=== PATIENT | male | born 1930 | race Caucasian/White ===

== ENCOUNTER 2016-11-12 09:26 | Observation (INO) | payer MEDICARE, BC ==
[2016-11-12 10:14] LABS: Appearance,Urine Clear (Clear); Bilirubin,Urine Negative (Negative); Glucose,Urine (UA) Negative (Negative); Ketones,Urine Negative (Negative); Leukocyte Esterase,Urine Negative (Negative); Mucus,Urine Rare /hpf; Nitrite,Urine Negative (Negative); Particle Count 3113; Protein,Urine Negative (Negative); RBC,Urine 135 /hpf (0-5); Specific Gravity,Urine 1.007 (1.001-1.035); UA Billing (MACRO vs. MICRO) MICRO; Urobilinogen,Urine <2.0 mg/dL (<2.0); WBC,Urine 2 /hpf (0-5)
--- NOTE | 2016-11-12 11:10 | ED ---
Male Urogenital HPI - General Chief complaint: Urogenital Stated complaint: blood in urine Time Seen by Provider: 11/12/16 10:32 Source: patient Mode of arrival: ambulatory Limitations: no limitations - History of Present Illness Initial comments: Patient is an 86-year-old male with history of diabetes, A. fib on Eliquis to presenting with 1 week of dysuria, decreased output and hematuria. Patient is from [place] and PCP started patient on Cipro for concern of urinary tract infection. Patient completed course of Cipro without change in symptoms. Patient states currently he is just dribbling urine. Patient continues to feels urgency. He denies fever, chills, chest pain, shortness breath, nausea, vomiting, abd pain. - Related Data Home Medications Medication Instructions Recorded Confirmed Apixaban [Eliquis] 2.5 mg PO BID 11/12/16 11/12/16 Atorvastatin [Lipitor] 10 mg PO DAILY 11/12/16 11/12/16 Carvedilol [Coreg] 6.25 mg PO DAILY 11/12/16 11/12/16 Cholecalciferol [Vitamin D3] 1,000 unit PO DAILY 11/12/16 11/12/16 Finasteride [Proscar] 5 mg PO DAILY 11/12/16 11/12/16 Glimepiride [Amaryl] 2 mg PO BID 11/12/16 11/12/16 Linagliptin [Tradjenta] 5 mg PO DAILY 11/12/16 11/12/16 Losartan Potassium 50 mg PO BID 11/12/16 11/12/16 Propafenone HCl [Propafenone HCl 325 mg PO BID 11/12/16 11/12/16 ER] Tamsulosin HCl [Flomax] 0.4 mg PO DAILY 11/12/16 11/12/16 Triamterene/Hydrochlorothiazid 1 tab PO DAILY 11/12/16 11/12/16 [Triamterene-Hctz 37.5-25 mg Tb] Allergies Allergy/AdvReac Type Severity Reaction Status Date / Time No Known Allergies Allergy Verified 11/12/16 10:07 Review of Systems ROS Statement: Those systems with pertinent positive or pertinent negative responses have been documented in the HPI. Constitutional: No fever and no chills. HENT: No congestion, no rhinorrhea and no sore throat. Eyes: No discharge and no redness. Respiratory: No cough and no shortness of breath. Cardiovascular: No chest pain and no palpitations. Gastrointestinal: No nausea, no vomiting, no abdominal pain and no diarrhea. Genitourinary: +dysuria/frequency and no hematuria. Musculoskeletal: No back pain and no arthralgias. Skin: No pallor and no rash. Neurological: No dizziness and No headaches. ROS Other: All systems not noted in ROS Statement are negative. Past Medical History Past Medical History: Diabetes Mellitus, Hypertension History of Any Multi-Drug Resistant Organisms: None Reported Past Surgical History: Pacemaker Past Psychological History: No Psychological Hx Reported Smoking Status: Never smoker Past Alcohol Use History: Occasional Past Drug Use History: None Reported General Exam Limitations: no limitations Course Vital Signs 11/12/16 11/12/16 11/12/16 09:29 12:35 13:21 Temperature 97.8 F Pulse Rate 75 67 68 Respiratory 20 16 16 Rate Blood Pressure 146/68 128/61 130/62 O2 Sat by Pulse 99 96 96 Oximetry 11/12/16 16:58 Temperature Pulse Rate 62 Respiratory 16 Rate Blood Pressure 166/71 O2 Sat by Pulse 96 Oximetry - Reevaluation(s) Reevaluation #1: 11/12/16 11:33 Patient states he just urinated with PVR showing greater than 250. Ledbetter was ordered. 11/12/16 15:57 Patient with persistent bleeding from Ledbetter catheter. Discussed care with Dr. Benson our urologist on-call who agrees with continued irrigation until clear and possible hospitalization if we are unable to stop the bleeding. Medical Decision Making - Medical Decision Making Patient is a 86-year-old male with history of A. fib on Eliquis is presenting with hematuria and hesitancy. Bladder scan was >250 so Ledbetter was placed with persistent hematuria. Bladder was irrigated multiple times for which return was always bloody. Consult to urology who recommends continued irrigation. Patient's hemoglobin was initially 12.6 and on repeat 12.3. Patient with persistent hematuria on Eliqius. Urology agrees with hospitalization for further. Patient was resting comfortably in bed. Course of stay unchanged and requires hospitalization for further monitoring of blood loss in the setting of Eliquis use. Denies pain. Discussed physical exam and diagnostic tests with patient. Questions answered and patient is agreeable to staying in the hospital. Discussed H&P and pertinent diagnostic tests with Dr. Amor, admitting physician, who agrees with plan and accepts admission of patient. - Lab Data Result diagrams: 11/12/16 16:11 11/12/16 11:36 Lab Results 11/12/16 11/12/16 11/12/16 Range/Units 09:55 11:36 11:36 WBC 9.4 (3.8-10.6) k/uL RBC 4.67 (4.30-5.90) m/uL Hgb 12.6 L (13.0-17.5) gm/dL Hct 37.9 L (39.0-53.0) % MCV 81.1 (80.0-100.0) fL MCH 27.1 (25.0-35.0) pg MCHC 33.4 (31.0-37.0) g/dL RDW 14.5 (11.5-15.5) % Plt Count 110 L (150-450) k/uL Neutrophils % 71 % Lymphocytes % 18 % Monocytes % 5 % Eosinophils % 3 % Basophils % 1 % Neutrophils # 6.7 (1.3-7.7) k/uL Lymphocytes # 1.7 (1.0-4.8) k/uL Monocytes # 0.5 (0-1.0) k/uL Eosinophils # 0.2 (0-0.7) k/uL Basophils # 0.0 (0-0.2) k/uL Sodium 139 (137-145) mmol/L Potassium 4.3 (3.5-5.1) mmol/L Chloride 104 (98-107) mmol/L Carbon Dioxide 23 (22-30) mmol/L Anion Gap 12 mmol/L BUN 31 H (9-20) mg/dL Creatinine 1.60 H (0.66-1.25) mg/dL Est GFR (MDRD) Af Amer 50 (>60 ml/min/1.73 sqM) Est GFR (MDRD) Non-Af 41 (>60 ml/min/1.73 sqM) Glucose 203 H (74-99) mg/dL Calcium 9.4 (8.4-10.2) mg/dL Urine Color Yellow Urine Appearance Clear (Clear) Urine pH 5.0 (5.0-8.0) Ur Specific [place] 1.007 (1.001-1.035) Urine Protein Negative (Negative) Urine Glucose (UA) Negative (Negative) Urine Ketones Negative (Negative) Urine Blood Large H (Negative) Urine Nitrite Negative (Negative) Urine Bilirubin Negative (Negative) Urine Urobilinogen <2.0 (<2.0) mg/dL Ur Leukocyte Esterase Negative (Negative) Urine RBC 135 H (0-5) /hpf Urine WBC 2 (0-5) /hpf Urine Mucus Rare H (None) /hpf 11/12/16 Range/Units 16:11 WBC 9.6 (3.8-10.6) k/uL RBC 4.45 (4.30-5.90) m/uL Hgb 12.3 L (13.0-17.5) gm/dL Hct 36.0 L (39.0-53.0) % MCV 80.9 (80.0-100.0) fL MCH 27.7 (25.0-35.0) pg MCHC 34.2 (31.0-37.0) g/dL RDW 14.3 (11.5-15.5) % Plt Count 105 L (150-450) k/uL Neutrophils % % Lymphocytes % % Monocytes % % Eosinophils % % Basophils % % Neutrophils # (1.3-7.7) k/uL Lymphocytes # (1.0-4.8) k/uL Monocytes # (0-1.0) k/uL Eosinophils # (0-0.7) k/uL Basophils # (0-0.2) k/uL Sodium (137-145) mmol/L Potassium (3.5-5.1) mmol/L Chloride (98-107) mmol/L Carbon Dioxide (22-30) mmol/L Anion Gap mmol/L BUN (9-20) mg/dL Creatinine (0.66-1.25) mg/dL Est GFR (MDRD) Af Amer (>60 ml/min/1.73 sqM) Est GFR (MDRD) Non-Af (>60 ml/min/1.73 sqM) Glucose (74-99) mg/dL Calcium (8.4-10.2) mg/dL Urine Color Urine Appearance (Clear) Urine pH (5.0-8.0) Ur Specific [place] (1.001-1.035) Urine Protein (Negative) Urine Glucose (UA) (Negative) Urine Ketones (Negative) Urine Blood (Negative) Urine Nitrite (Negative) Urine Bilirubin (Negative) Urine Urobilinogen (<2.0) mg/dL Ur Leukocyte Esterase (Negative) Urine RBC (0-5) /hpf Urine WBC (0-5) /hpf Urine Mucus (None) /hpf Disposition Clinical Impression: Urinary retention, Hematuria, Coagulopathy Disposition: ADMITTED IP TO THIS HOSP Referrals: Nonstaff,Physician [Primary Care Provider] - 1-2 days
[2016-11-12 11:51] LABS: Basophils % (A) 1 %; CH 27.4; CHCM 33.9; Eosinophils # (A) 0.2 k/uL (0-0.7); Eosinophils % (A) 3 %; HCT 37.9 % (39.0-53.0); HDW 2.51; HGB 12.6 gm/dL (13.0-17.5); Luc # (Auto) 0.24; Luc % (Auto) 3; Lymphocytes # (A) 1.7 k/uL (1.0-4.8); Lymphocytes % (A) 18 %; MCH 27.1 pg (25.0-35.0); MCHC 33.4 g/dL (31.0-37.0); MCV 81.1 fL (80.0-100.0); Mean Platelet Volume 7.7; Monocytes # (A) 0.5 k/uL (0-1.0); Monocytes % (A) 5 %; Neutrophils # (A) 6.7 k/uL (1.3-7.7); Neutrophils % (A) 71 %; RBC 4.67 m/uL (4.30-5.90); RDW 14.5 % (11.5-15.5); WBC 9.4 k/uL (3.8-10.6); WBC (Perox) 9.77
[2016-11-12 12:16] LABS: Calcium 9.4 mg/dL (8.4-10.2); Potassium 4.3 mmol/L (3.5-5.1)
[2016-11-12 16:22] LABS: CH 27.4; CHCM 33.9; HDW 2.51; HGB 12.3 gm/dL (13.0-17.5); MCH 27.7 pg (25.0-35.0); MCHC 34.2 g/dL (31.0-37.0); MCV 80.9 fL (80.0-100.0); Mean Platelet Volume 7.7; RBC 4.45 m/uL (4.30-5.90); RDW 14.3 % (11.5-15.5); WBC 9.6 k/uL (3.8-10.6)
[2016-11-12] MEDS ORDERED: SODIUM CHLORIDE 0.9% 1,000 ML IV ONE (17:33)
[2016-11-12] MEDS ORDERED: NALOXONE 0.4 MG/ML 1 ML VIAL IV PRN (17:33)
[2016-11-12 19:31] VITALS: BMI 34.3
[2016-11-12 20:46] LABS: Glucose,Whole Blood 132 mg/dL (75-99)
--- NOTE | 2016-11-12 20:47 | P.GSCN ---
History of Present Illness Consult date: 11/12/16 Reason for Consult: Gross hematuria with urine retention History of present illness: The patient is an 86-year-old gentleman who was returning from [place] to [facility] when he started having problems urinating. Approximately 2 weeks ago he was having problems with urgency frequency and discomfort with urination. He went to his primary doctor in [place] who suggested that he had a urine infection and was started on Cipro. The patient is on chronic anticoagulation for atrial fibrillation. Upon driving up from [place] he noticed increasing difficulty with urination. He noticed blood in the urine. He presented to the emergency room in clot urinary retention. His initial hemoglobin was 12.9 and repeated at 12.3 after hydration. A Ledbetter catheters placed in the emergency room. He is irrigated with several clots. He was admitted for continued IV fluids and observation. We're asked see the patient in consult. The patient does have a urologist in [place]. The urologist in [place] is place him on tamsulosin and recently on finasteride. Review of Systems - Constitutional Reports weight gain - Gastrointestinal Reports abdominal pain - Genitourinary Reports as per HPI - Endocrine Endocrine Comment(s): Diabetes Reports deepening of the voice Past Medical History Past Medical History: Diabetes Mellitus, Hyperlipidemia, Hypertension, Prostate Disorder History of Any Multi-Drug Resistant Organisms: None Reported Past Surgical History: Pacemaker Type of Cardiac Device: Permanent Pacemaker Device Placement Date:: unknown Past Psychological History: No Psychological Hx Reported Smoking Status: Never smoker Past Alcohol Use History: Occasional Past Drug Use History: None Reported - Past Family History Father History Unknown: Yes Medications and Allergies Home Medications Medication Instructions Recorded Confirmed Type Apixaban [Eliquis] 2.5 mg PO BID 11/12/16 11/12/16 History Atorvastatin [Lipitor] 10 mg PO DAILY 11/12/16 11/12/16 History Carvedilol [Coreg] 6.25 mg PO DAILY 11/12/16 11/12/16 History Cholecalciferol [Vitamin D3] 1,000 unit PO DAILY 11/12/16 11/12/16 History Finasteride [Proscar] 5 mg PO DAILY 11/12/16 11/12/16 History Glimepiride [Amaryl] 2 mg PO BID 11/12/16 11/12/16 History Linagliptin [Tradjenta] 5 mg PO DAILY 11/12/16 11/12/16 History Losartan Potassium 50 mg PO BID 11/12/16 11/12/16 History Propafenone HCl [Propafenone HCl 325 mg PO BID 11/12/16 11/12/16 History ER] Tamsulosin HCl [Flomax] 0.4 mg PO DAILY 11/12/16 11/12/16 History Triamterene/Hydrochlorothiazid 1 tab PO DAILY 11/12/16 11/12/16 History [Triamterene-Hctz 37.5-25 mg Tb] Allergies Allergy/AdvReac Type Severity Reaction Status Date / Time No Known Allergies Allergy Verified 11/12/16 18:15 Surgical - Exam Vital Signs Temp Pulse Resp BP Pulse Ox 97.8 F 75 20 146/68 99 11/12/16 09:29 11/12/16 09:29 11/12/16 09:29 11/12/16 09:29 11/12/16 09:29 - General well developed, well nourished, obese - Eyes PERRL - ENT no hearing loss - Neck trachea midline - Respiratory normal expansion, normal respiratory effort - Cardiovascular Rhythm: irregularly irregular - Abdomen Abdomen: soft, non tender - Genitourinary There is an indwelling catheter, he is uncircumcised. There is blood around the urethral meatus. Both testes are descended and unremarkable. The blood in the urine is light pink. The prostate is 30-40 g with a nodule in the right lobe. - Rectum Rectum: normal sphincter tone - Integumentary no rash, no growths - Neurologic normal coordination, normal sensation - Musculoskeletal normal posture - Psychiatric oriented to time, oriented to person, oriented to place, speech is normal, memory intact Results - Labs 11/12/16 16:11 11/12/16 11:36 Abnormal Lab Results - Last 24 Hours (Table) 11/12/16 11/12/16 11/12/16 Range/Units 09:55 11:36 11:36 Hgb 12.6 L (13.0-17.5) gm/dL Hct 37.9 L (39.0-53.0) % Plt Count 110 L (150-450) k/uL BUN 31 H (9-20) mg/dL Creatinine 1.60 H (0.66-1.25) mg/dL Glucose 203 H (74-99) mg/dL Urine Blood Large H (Negative) Urine RBC 135 H (0-5) /hpf Urine Mucus Rare H (None) /hpf 11/12/16 Range/Units 16:11 Hgb 12.3 L (13.0-17.5) gm/dL Hct 36.0 L (39.0-53.0) % Plt Count 105 L (150-450) k/uL BUN (9-20) mg/dL Creatinine (0.66-1.25) mg/dL Glucose (74-99) mg/dL Urine Blood (Negative) Urine RBC (0-5) /hpf Urine Mucus (None) /hpf Microbiology - Last 24 Hours (Table) 11/12/16 10:50 Urine Culture - Preliminary Urine,Voided Diabetes panel 11/12/16 Range/Units 11:36 Sodium 139 (137-145) mmol/L Potassium 4.3 (3.5-5.1) mmol/L Chloride 104 (98-107) mmol/L Carbon Dioxide 23 (22-30) mmol/L BUN 31 H (9-20) mg/dL Creatinine 1.60 H (0.66-1.25) mg/dL Glucose 203 H (74-99) mg/dL Calcium 9.4 (8.4-10.2) mg/dL Calcium panel 11/12/16 Range/Units 11:36 Calcium 9.4 (8.4-10.2) mg/dL Pituitary panel 11/12/16 Range/Units 11:36 Sodium 139 (137-145) mmol/L Potassium 4.3 (3.5-5.1) mmol/L Chloride 104 (98-107) mmol/L Carbon Dioxide 23 (22-30) mmol/L BUN 31 H (9-20) mg/dL Creatinine 1.60 H (0.66-1.25) mg/dL Glucose 203 H (74-99) mg/dL Calcium 9.4 (8.4-10.2) mg/dL Adrenal panel 11/12/16 Range/Units 11:36 Sodium 139 (137-145) mmol/L Potassium 4.3 (3.5-5.1) mmol/L Chloride 104 (98-107) mmol/L Carbon Dioxide 23 (22-30) mmol/L BUN 31 H (9-20) mg/dL Creatinine 1.60 H (0.66-1.25) mg/dL Glucose 203 H (74-99) mg/dL Calcium 9.4 (8.4-10.2) mg/dL Assessment and Plan Plan: Impression: Gross hematuria with clot urinary retention probably secondary to urinary tract infection. Anticoagulation for atrial fibrillation, diabetes. Anemia secondary to acute blood loss. Recommendations:. Urine appears to be clearing appropriately with an indwelling catheter. The he should stay off the anticoagulation for now. We' ll resume his tamsulosin such that when the catheter comes out probably in about 48 hours hopefully he will void without difficulty. He will probably need an outpatient cystoscopy at some point in time. I would not resume his Eliquis until the bleeding has stopped for several days.
[2016-11-12 20:58] LABS: Hemoglobin A1C 7.1 % (4.2-6.1)
[2016-11-12] MEDS ORDERED: PROPAFENONE HCL 325 MG PO SCH (21:00)
[2016-11-12] MEDS: GLIMEPIRIDE 2 MG TAB PO SCH (21:25)
[2016-11-12] MEDS: LOSARTAN 50 MG TAB PO SCH (21:25)
[2016-11-12] MEDS: INSULIN LISPRO (humaLOG) 300 UNIT/3 ML VIAL SQ SCH (21:26)
[2016-11-13 07:13] LABS: Basophils % (A) 0 %; CH 27.7; CHCM 33.6; Eosinophils # (A) 0.1 k/uL (0-0.7); Eosinophils % (A) 1 %; HDW 2.42; HGB 12.6 gm/dL (13.0-17.5); Luc # (Auto) 0.21; Luc % (Auto) 2; Lymphocytes # (A) 1.1 k/uL (1.0-4.8); Lymphocytes % (A) 12 %; MCH 27.3 pg (25.0-35.0); MCHC 33.1 g/dL (31.0-37.0); MCV 82.6 fL (80.0-100.0); Mean Platelet Volume 7.4; Monocytes # (A) 0.5 k/uL (0-1.0); Monocytes % (A) 6 %; Neutrophils # (A) 7.5 k/uL (1.3-7.7); Neutrophils % (A) 79 %; RDW 14.3 % (11.5-15.5); WBC 9.5 k/uL (3.8-10.6); WBC (Perox) 10.15
[2016-11-13] MEDS ORDERED: CARVEDILOL 6.25 MG TAB PO SCH (07:30)
[2016-11-13] MEDS: LOSARTAN 50 MG TAB PO SCH ×2 (08:03→21:50)
[2016-11-13] MEDS: LINAGLIPTIN 5 MG TABLET PO SCH (08:03)
[2016-11-13] MEDS: GLIMEPIRIDE 2 MG TAB PO SCH ×2 (08:03→21:50)
[2016-11-13] MEDS: ATORVASTATIN 10 MG TAB PO SCH (08:03)
[2016-11-13] MEDS: INSULIN LISPRO (humaLOG) 300 UNIT/3 ML VIAL SQ SCH ×4 (08:04→21:50)
[2016-11-13] MEDS ORDERED: TRIAMTERENE-HCTZ 37.5-25MG 1 EACH TAB PO SCH (09:00)
[2016-11-13] MEDS ORDERED: TAMSULOSIN 0.4 MG CAP.ER.24H PO SCH ×2 (09:00→21:00)
[2016-11-13] MEDS ORDERED: FINASTERIDE 5 MG TAB PO SCH ×2 (09:00→21:00)
[2016-11-13 11:58] LABS: Glucose,Whole Blood 265 mg/dL (75-99)
[2016-11-13] MEDS: CHOLECALCIFEROL 1,000 UNIT TAB PO SCH (12:58)
[2016-11-13] MEDS: LACTATED RINGERS 1,000 ML IV SCH (15:31)
[2016-11-13 17:09] LABS: Glucose,Whole Blood 177 mg/dL (75-99)
[2016-11-13] MEDS: CARVEDILOL 6.25 MG TAB PO SCH (17:39)
--- NOTE | 2016-11-13 18:24 | CONS ---
DATE OF CONSULTATION: 11/13/2016 REASON FOR CONSULTATION: Medical management requested by
--- NOTE | 2016-11-13 18:39 | HP ---
DATE OF ADMISSION: 11/12/2016 PRESENTING COMPLAINT: Hematuria. HISTORY OF PRESENTING COMPLAINT: This is a very pleasant 86-year-old patient who is visiting from [place]. His chronic stable medical conditions include diabetes, hypertension, hyperlipidemia, atrial fibrillation. He has a pacemaker. Patient was having trouble making urine and thought he had a UTI and was started on ciprofloxacin. He started driving ( ) [place] and then patient started passing hematuria and blood clots. A Ledbetter catheter was placed in the ER. The patient had quite a bit of hematuria and blood clots. Dr. Lanza had to come in for the same. Patient has been on Eliquis; that was discontinued. Feels a bit weak and tired, but no dizziness, no chest pain. REVIEW OF SYSTEMS: CONSTITUTIONAL: Tired. HEENT: None. RESPIRATORY: None. CARDIOVASCULAR: None. GASTROINTESTINAL: None. GENITOURINARY: As above. MUSCULOSKELETAL: None. DERMATOLOGIC: None. HEMATOLOGIC: None. LYMPHATICS: None. PSYCHIATRY: None. NEUROLOGICAL: None. PAST MEDICAL HISTORY: 1. Diabetes. 2. Hypertension. 3. Hyperlipidemia. 4. BPH. 5. Atrial fibrillation. 6. Pacemaker. PAST SURGICAL HISTORY: Pacemaker. SOCIAL HISTORY: No smoking. Alcohol occasionally. . Lives in [place]. Family lives in [place]. FAMILY HISTORY: Reviewed; noncontributory to presentation. HOME MEDICATIONS: 1. Coreg 6.25 p.o. b.i.d. 2. Triamterene/hydrochlorothiazide 37.5/25 one tablet p.o. daily. 3. Flomax 0.4 mg p.o. daily. 4. Propafenone ER 325 p.o. b.i.d. 5. Losartan 50 mg b.i.d. 6. Tradjenta 5 mg p.o. daily. 7. Amaryl 2 mg p.o. b.i.d. 8. Proscar 5 mg p.o. daily. 9. Vitamin D3 1000 units p.o. daily. 10. Lipitor 10 mg p.o. daily. 11. Eliquis 2.5 p.o. b.i.d. ALLERGIES: NONE. On examination, temperature 97.5, pulse 80, respiratory rate 16, blood pressure 146/71, pulse ox 96% on room air. GENERAL APPEARANCE: Well built; BMI of 34.4. Lying in bed. Not in distress. EYES: Pupils equal. Conjunctivae normal. HEENT: Oral cavity normal. NECK: JVD not raised. Mass not palpable. RESPIRATORY: Effort normal. Lungs are clear. CARDIOVASCULAR: First and second sounds normal. No edema. ABDOMEN: Soft, nontender. Liver and spleen not palpable. LYMPHATIC: No lymph node palpable in neck or axillae. PSYCHIATRY: Alert and oriented x3. Mood and affect normal. NEUROLOGICAL: Pupils equal. Cranial nerves grossly intact. Power and sensation grossly intact. GENITOURINARY: Ledbetter catheter in place with bloody urine in the bag. INVESTIGATIONS: White count 9.1, hemoglobin 12.6, platelets 110. Potassium 4.3. BUN 31, creatinine 1.60. ASSESSMENT: 1. Severe hematuria in a patient who is on Eliquis. 2. 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 3. Diabetes mellitus, type 2, on oral hypoglycemic. 4. Essential hypertension. 5. Hyperlipidemia. 6. Benign prostatic hypertrophy causing bladder outflow obstruction. 7. Persistent atrial fibrillation. Patient has a pacemaker in place. 8. Renal failure, possibly chronic kidney disease, stage III, probably from diabetic nephropathy. PLAN: Of course Eliquis has been discontinued. Patient has a Ledbetter in place. Getting hydrated. Patient's diuretics will be discontinued. Will hydrate the patient gently, see if the renal function improves. Follow up with Urology. Accu-Cheks will be followed.
[2016-11-13 20:24] LABS: Glucose,Whole Blood 154 mg/dL (75-99)
[2016-11-14] MEDS: LACTATED RINGERS 1,000 ML IV SCH (05:58)
[2016-11-14 07:14] LABS: Glucose,Whole Blood 175 mg/dL (75-99)
[2016-11-14 07:29] LABS: Anion Gap 9 mmol/L; Blood Urea Nitrogen 29 mg/dL (9-20); Calcium 8.6 mg/dL (8.4-10.2); Carbon Dioxide 26 mmol/L (22-30); Chloride 104 mmol/L (98-107); Glucose 178 mg/dL (74-99); Non-African American GFR(MDRD) 52 (>60 ml/min/1.73 sqM); Potassium 3.9 mmol/L (3.5-5.1); Sodium 139 mmol/L (137-145)
[2016-11-14] MEDS: ATORVASTATIN 10 MG TAB PO SCH (07:51)
[2016-11-14] MEDS: INSULIN LISPRO (humaLOG) 300 UNIT/3 ML VIAL SQ SCH ×2 (07:51→12:51)
[2016-11-14] MEDS: CARVEDILOL 6.25 MG TAB PO SCH (07:52)
[2016-11-14] MEDS: LINAGLIPTIN 5 MG TABLET PO SCH (07:52)
[2016-11-14] MEDS: LOSARTAN 50 MG TAB PO SCH (07:52)
[2016-11-14] MEDS: GLIMEPIRIDE 2 MG TAB PO SCH (07:52)
--- NOTE | 2016-11-14 09:04 | P.PN ---
Subjective The steffi had gross hematuria due to a uti and anticoagulation His urine has cleared I will d/c the heck If he voids of then I he can go home from my standpoint and I will see him in 1 week Objective - Vital Signs Vital signs: Vital Signs Temp 98.3 F 11/14/16 07:00 Pulse 69 11/14/16 08:00 Resp 14 11/14/16 08:00 BP 163/71 11/14/16 07:00 Pulse Ox 97 11/14/16 07:00 Intake & Output 11/13/16 11/14/16 11/14/16 18:59 06:59 18:59 Intake Total 160 600 480 Output Total 800 825 Balance -640 -225 480 Intake: IV 600 Lactated Ringers 1,000 ml 600 @ 75 mls/hr IV .[id number] [facility] Rx#:[id number] Intake, IV Titration 160 Amount Sodium Chloride 0.9% 1, 160 000 ml @ 20 mls/hr IV . Q24H ONE Rx#:[id number] Oral 480 Output: Urine 800 825 2-way Urethral 800 Other: Voiding Method Indwelling Catheter Indwelling Catheter Indwelling Catheter - Labs CBC & Chem 7: 11/13/16 06:40 11/14/16 06:40 Labs: Abnormal Lab Results - Last 24 Hours (Table) 11/13/16 11/13/16 11/13/16 Range/Units 11:49 17:07 20:23 BUN (9-20) mg/dL Creatinine (0.66-1.25) mg/dL Glucose (74-99) mg/dL POC Glucose (mg/dL) 265 H 177 H 154 H (75-99) mg/dL 11/14/16 11/14/16 Range/Units 06:40 07:00 BUN 29 H (9-20) mg/dL Creatinine 1.31 H (0.66-1.25) mg/dL Glucose 178 H (74-99) mg/dL POC Glucose (mg/dL) 175 H (75-99) mg/dL Microbiology - Last 24 Hours (Table) 11/12/16 10:50 Urine Culture - Final Urine,Voided
[2016-11-14 11:30] LABS: Glucose,Whole Blood 187 mg/dL (75-99)
[2016-11-14] MEDS: CHOLECALCIFEROL 1,000 UNIT TAB PO SCH (12:51)
[2016-11-14 13:41] VITALS: BP 129/56; PULSE 84; RESP 16; TEMP 97.8
[2016-11-14 16:41] LABS: Glucose,Whole Blood 157 mg/dL (75-99)
--- NOTE | 2016-11-17 12:31 | DS ---
DATE OF ADMISSION: 11/12/2016 DATE OF DISCHARGE: 11/14/2016 FINAL DIAGNOSES: 1. Severe hematuria in a patient who on Eliquis. 2. 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 3. Type 2 diabetes mellitus on oral hypoglycemics. 4. Essential hypertension. 5. Hyperlipidemia. 6. Benign prostatic hypertrophy causing bladder outflow obstruction. 7. Persistent atrial fibrillation with a pacemaker in place. 8. 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 HOSPITAL COURSE: This patient is traveling here from [place]. Was on Cipro for UTI. Presented with severe hematuria. Catheter had to be placed. Eliquis was being discontinued. The patient Ledbetter was discontinued on the day of discharge making good urine. Patient told to contact his reporting manager and make a further decision about anticoagulation. In any case to hold off Eliquis at least one week. On exam, lungs are clear. CARDIOVASCULAR: First and second sounds normal. Patient's BUN and creatinine are 29/1.31. Hemoglobin is 12.6 and discharge planning more than 35 minutes. CONSULTATIONS: Dr. Lanza from urology. DISCHARGE MEDICATIONS: 1. Lipitor 10 mg daily. 2. Coreg 6.25 p.o. b.i.d. 3. Vitamin D3 1000 units p.o. daily. 4. Proscar 5 mg p.o. daily. 5. Amaryl 2 mg p.o. b.i.d. 6. Tradjenta 5 mg p.o. daily. 7. Losartan 50 mg b.i.d. 8. Propafenone ER 325 p.o. b.i.d. 9. Flomax 0.4 mg p.o. daily. 10. Triamterene hydrochlorothiazide 37.5/25 1 tablet p.o. daily. ( ). Follow up with Dr. Abad in 3 days. Follow-up with Dr. Lanza in one week. Patient is to contact his reporting manager the day after discharge. Discharge planning more than 35 minutes.
== END 2016-11-14 17:21 | disposition home or self-care (01) ==
LOC: EC 09:26 → 3SUR 17:36
PROVIDERS: ADMIT Hospitalist; ATTEND Hospitalist
DX: R31.0 Gross hematuria (principal); D69.6 Thrombocytopenia, unspecified; E11.9 Type 2 diabetes mellitus without complications; Z79.84 Long term (current) use of oral hypoglycemic drugs; I10 Essential (primary) hypertension; Z95.0 Presence of cardiac pacemaker; N40.0 Benign prostatic hyperplasia without lower urinary tract symptoms; Z79.01 Long term (current) use of anticoagulants; E78.5 Hyperlipidemia, unspecified; I48.1 Persistent atrial fibrillation; N32.0 Bladder-neck obstruction; N19 Unspecified kidney failure; Z79.899 Other long term (current) drug therapy; D62 Acute posthemorrhagic anemia
CPT/HCPCS: 99284; 96360; 96361; 51798; 36415; 80048 ×2; 83036; 85025 ×2; 85027; 81001; 87086; G0378 ×3; S0138

== ENCOUNTER 2016-12-03 09:19 | Emergency (ER) | payer MEDICARE, BC ==
[2016-12-03 10:04] LABS: Appearance,Urine Cloudy (Clear); Bacteria,Urine Occasional /hpf; Bilirubin,Urine Negative (Negative); Glucose,Urine (UA) Negative (Negative); Ketones,Urine Negative (Negative); Leukocyte Esterase,Urine Moderate (Negative); Nitrite,Urine Negative (Negative); Particle Count 21171; Protein,Urine 2+ (Negative); RBC,Urine >182 /hpf (0-5); Specific Gravity,Urine 1.015 (1.001-1.035); UA Billing (MACRO vs. MICRO) MICRO; Urobilinogen,Urine <2.0 mg/dL (<2.0); WBC,Urine >182 /hpf (0-5)
[2016-12-03 10:05] LABS: Basophils # (A) 0.1 k/uL (0-0.2); Basophils % (A) 1 %; CH 27.2; CHCM 34.4; Eosinophils # (A) 0.3 k/uL (0-0.7); Eosinophils % (A) 4 %; HCT 34.8 % (39.0-53.0); HDW 2.59; Luc # (Auto) 0.13; Luc % (Auto) 2; Lymphocytes # (A) 1.6 k/uL (1.0-4.8); Lymphocytes % (A) 20 %; MCH 27.4 pg (25.0-35.0); MCHC 34.6 g/dL (31.0-37.0); MCV 79.3 fL (80.0-100.0); Mean Platelet Volume 7.3; Monocytes # (A) 0.3 k/uL (0-1.0); Monocytes % (A) 4 %; Neutrophils # (A) 5.6 k/uL (1.3-7.7); Neutrophils % (A) 70 %; RBC 4.39 m/uL (4.30-5.90); RDW 13.9 % (11.5-15.5); WBC 8.1 k/uL (3.8-10.6); WBC (Perox) 7.74
[2016-12-03 10:11] LABS: INR 1.1 (<1.1); Partial Thromboplastin Time 31.2 sec (22.0-30.0); Prothrombin Time 11.4 sec (9.0-12.0)
[2016-12-03 10:13] LABS: ALT 26 U/L (21-72); AST 14 U/L (17-59); Alkaline Phosphatase 76 U/L (38-126); Anion Gap 9 mmol/L; Blood Urea Nitrogen 25 mg/dL (9-20); Calcium 8.9 mg/dL (8.4-10.2); Carbon Dioxide 26 mmol/L (22-30); Chloride 105 mmol/L (98-107); Glucose 261 mg/dL (74-99); Non-African American GFR(MDRD) 53 (>60 ml/min/1.73 sqM); Potassium 4.1 mmol/L (3.5-5.1); Sodium 140 mmol/L (137-145); Total Bilirubin 0.9 mg/dL (0.2-1.3)
--- NOTE | 2016-12-03 10:19 | ED ---
General Adult HPI - General Source: patient, RN notes reviewed Mode of arrival: ambulatory Limitations: no limitations <Nuno Jacob - Last Filed: 12/03/16 11:50> <Harish Forde - Last Filed: 12/03/16 11:56> - General Chief complaint: Urogenital Stated complaint: HEMATURIA Time Seen by Provider: 12/03/16 09:38 - History of Present Illness Initial comments: Patient 86-year-old male who presents emergency room today with chief complaint of hematuria. He states that this morning he noticed some blood in his urine. Patient does admit that he had similar symptoms approximately 2 weeks ago which she was admitted for. He does admit that he is currently on Eliquis. He states that he was diagnosed with urinary tract infection in the past. He states she's not had any increased urgency or frequency. He denies any other complaints other than hematuria today. States a history of a enlarged prostate. States he sees a urologist has an appointment coming up next week. Patient denies any recent fever, chills, shortness of breath, chest pain, back pain, abdominal pain, nausea or vomiting, numbness or tingling, dysuria, constipation or diarrhea, headaches or visual changes, or any other complaints. (Nuno Jacob) - Related Data Home Medications Medication Instructions Recorded Confirmed Atorvastatin [Lipitor] 10 mg PO HS 11/12/16 12/03/16 Carvedilol [Coreg] 6.25 mg PO DAILY 11/12/16 12/03/16 Cholecalciferol [Vitamin D3] 1,000 unit PO DAILY 11/12/16 12/03/16 Finasteride [Proscar] 5 mg PO DAILY 11/12/16 12/03/16 Glimepiride [Amaryl] 2 mg PO BID 11/12/16 12/03/16 Linagliptin [Tradjenta] 5 mg PO DAILY 11/12/16 12/03/16 Losartan Potassium 50 mg PO BID 11/12/16 12/03/16 Propafenone HCl [Propafenone HCl 325 mg PO BID 11/12/16 12/03/16 ER] Tamsulosin HCl [Flomax] 0.4 mg PO BID 11/12/16 12/03/16 Triamterene/Hydrochlorothiazid 1 tab PO DAILY 11/12/16 12/03/16 [Triamterene-Hctz 37.5-25 mg Tb] Apixaban [Eliquis] 2.5 mg PO BID 12/03/16 12/03/16 Previous Rx's Medication Instructions Recorded Ciprofloxacin HCl [Cipro] 500 mg PO Q12HR #20 day 12/03/16 Allergies Allergy/AdvReac Type Severity Reaction Status Date / Time No Known Allergies Allergy Verified 12/03/16 11:09 Review of Systems ROS Other: All systems not noted in ROS Statement are negative. <Nuno Jacob - Last Filed: 12/03/16 11:50> ROS Other: All systems not noted in ROS Statement are negative. <Harish Forde - Last Filed: 12/03/16 11:56> ROS Statement: Those systems with pertinent positive or pertinent negative responses have been documented in the HPI. Past Medical History Past Medical History: Diabetes Mellitus, Hyperlipidemia, Hypertension, Prostate Disorder History of Any Multi-Drug Resistant Organisms: None Reported Past Surgical History: Pacemaker Type of Cardiac Device: Permanent Pacemaker Device Placement Date:: unknown Past Psychological History: No Psychological Hx Reported Smoking Status: Never smoker Past Alcohol Use History: Occasional Past Drug Use History: None Reported - Past Family History Father History Unknown: Yes <Nuno Jacob - Last Filed: 12/03/16 11:50> General Exam Limitations: no limitations <Nuno Jacob - Last Filed: 12/03/16 11:50> <Harish Forde - Last Filed: 12/03/16 11:56> - General Exam Comments Initial Comments: General: The patient is awake and alert, in no distress, and does not appear acutely ill. Eye: Pupils are equal, round and reactive to light, extra-ocular movements are intact. No nystagmus. There is normal conjunctiva bilaterally. No signs of icterus. Ears, nose, mouth and throat: There are moist mucous membranes and no oral lesions. Neck: The neck is supple, there is no tenderness or JVD. Cardiovascular: There is a regular rate and rhythm. No murmur, rub or gallop is appreciated. Respiratory: Lungs are clear to auscultation, respirations are non-labored, breath sounds are equal. No wheezes, stridor, rales, or rhonchi. Gastrointestinal: Soft, non-distended, non-tender abdomen without masses or organomegaly noted. There is no rebound or guarding present. No CVA tenderness. Bowel sounds are unremarkable. Musculoskeletal: Normal ROM, no tenderness. Strength 5/5. Sensation intact. Pulses equal bilaterally 2+. Neurological: A&O x 3. CN II-XII intact, There are no obvious motor or sensory deficits. Coordination appears grossly intact. Speech is normal. Skin: Skin is warm and dry and no rashes or lesions are noted. Psychiatric: Cooperative, appropriate mood & affect, normal judgment. (Nuno Jacob) Course <Nuno Jacob - Last Filed: 12/03/16 11:50> <Harish Forde - Last Filed: 12/03/16 11:56> Vital Signs 12/03/16 12/03/16 09:24 11:06 Temperature 97.7 F 99.0 F Pulse Rate 70 63 Respiratory 18 17 Rate Blood Pressure 147/67 173/76 O2 Sat by Pulse 97 95 Oximetry - Reevaluation(s) Reevaluation #1: 12/03/16 11:56 I did a [id number] evaluation of the patient did discuss findings with him and his family. His abdomen is soft and nontender. Patient will be discharged on appropriate medication with urology follow-up. We did review the CAT scan results. (Harish Forde) Medical Decision Making - Lab Data Result diagrams: 12/03/16 09:45 12/03/16 09:45 <Nuno Jacob - Last Filed: 12/03/16 11:50> - Lab Data Result diagrams: 12/03/16 09:45 12/03/16 09:45 <Harish Forde - Last Filed: 12/03/16 11:56> - Medical Decision Making Patient's CT of the abdomen and pelvis reviewed shows 1. A couple hypodense lesions within the kidneys measuring up to 1.4 cm, [address] characterization, suspected cyst. 2. Prostatomegaly with prominent soft tissue and pressing onto the posterior bladder base. 3. Mild. Vascular fashion he may be reactive to bladder outlet obstruction or could represent a cystitis. 4. A 9 Bgcpembghy-ysfa-hka based nodule left paramedian posterior bladder wall. Small urethral lesion not excluded at this time. 5. 7 mm right basilar pulmonary nodule. 6. Cholelithiasis. Case discussed in detail with attending physician Dr. Forde. She will be placed back on antibiotics cover for urinary tract infection advised follow-up urologist over the next 1-2 days. Advised to hold his blood thinner at this time until urine has cleared. Advised return to emergency room symptoms increase or worsen.. (Nuno Jacob) - Lab Data Lab Results 12/03/16 12/03/16 12/03/16 Range/Units 09:25 09:45 09:45 WBC 8.1 (3.8-10.6) k/uL RBC 4.39 (4.30-5.90) m/uL Hgb 12.0 L (13.0-17.5) gm/dL Hct 34.8 L (39.0-53.0) % MCV 79.3 L (80.0-100.0) fL MCH 27.4 (25.0-35.0) pg MCHC 34.6 (31.0-37.0) g/dL RDW 13.9 (11.5-15.5) % Plt Count 113 L (150-450) k/uL Neutrophils % 70 % Lymphocytes % 20 % Monocytes % 4 % Eosinophils % 4 % Basophils % 1 % Neutrophils # 5.6 (1.3-7.7) k/uL Lymphocytes # 1.6 (1.0-4.8) k/uL Monocytes # 0.3 (0-1.0) k/uL Eosinophils # 0.3 (0-0.7) k/uL Basophils # 0.1 (0-0.2) k/uL PT (9.0-12.0) sec INR (<1.1) APTT (22.0-30.0) sec Sodium 140 (137-145) mmol/L Potassium 4.1 (3.5-5.1) mmol/L Chloride 105 (98-107) mmol/L Carbon Dioxide 26 (22-30) mmol/L Anion Gap 9 mmol/L BUN 25 H (9-20) mg/dL Creatinine 1.29 H (0.66-1.25) mg/dL Est GFR (MDRD) Af Amer >60 (>60 ml/min/1.73 sqM) Est GFR (MDRD) Non-Af 53 (>60 ml/min/1.73 sqM) Glucose 261 H (74-99) mg/dL Calcium 8.9 (8.4-10.2) mg/dL Total Bilirubin 0.9 (0.2-1.3) mg/dL AST 14 L (17-59) U/L ALT 26 (21-72) U/L Alkaline Phosphatase 76 (38-126) U/L Total Protein 6.0 L (6.3-8.2) g/dL Albumin 3.5 (3.5-5.0) g/dL Urine Color Red Urine Appearance Cloudy (Clear) Urine pH 6.0 (5.0-8.0) Ur Specific [place]avin[place] 1.015 (1.001-1.035) Urine Protein 2+ H (Negative) Urine Glucose (UA) Negative (Negative) Urine Ketones Negative (Negative) Urine Blood Large H (Negative) Urine Nitrite Negative (Negative) Urine Bilirubin Negative (Negative) Urine Urobilinogen <2.0 (<2.0) mg/dL Ur Leukocyte Esterase Moderate H (Negative) Urine RBC >182 H (0-5) /hpf Urine WBC >182 H (0-5) /hpf Urine WBC Clumps Many H (None) /hpf Urine Bacteria Occasional H (None) /hpf 12/03/16 Range/Units 09:45 WBC (3.8-10.6) k/uL RBC (4.30-5.90) m/uL Hgb (13.0-17.5) gm/dL Hct (39.0-53.0) % MCV (80.0-100.0) fL MCH (25.0-35.0) pg MCHC (31.0-37.0) g/dL RDW (11.5-15.5) % Plt Count (150-450) k/uL Neutrophils % % Lymphocytes % % Monocytes % % Eosinophils % % Basophils % % Neutrophils # (1.3-7.7) k/uL Lymphocytes # (1.0-4.8) k/uL Monocytes # (0-1.0) k/uL Eosinophils # (0-0.7) k/uL Basophils # (0-0.2) k/uL PT 11.4 (9.0-12.0) sec INR 1.1 (<1.1) APTT 31.2 H (22.0-30.0) sec Sodium (137-145) mmol/L Potassium (3.5-5.1) mmol/L Chloride (98-107) mmol/L Carbon Dioxide (22-30) mmol/L Anion Gap mmol/L BUN (9-20) mg/dL Creatinine (0.66-1.25) mg/dL Est GFR (MDRD) Af Amer (>60 ml/min/1.73 sqM) Est GFR (MDRD) Non-Af (>60 ml/min/1.73 sqM) Glucose (74-99) mg/dL Calcium (8.4-10.2) mg/dL Total Bilirubin (0.2-1.3) mg/dL AST (17-59) U/L ALT (21-72) U/L Alkaline Phosphatase (38-126) U/L Total Protein (6.3-8.2) g/dL Albumin (3.5-5.0) g/dL Urine Color Urine Appearance (Clear) Urine pH (5.0-8.0) Ur Specific [place]avin[place] (1.001-1.035) Urine Protein (Negative) Urine Glucose (UA) (Negative) Urine Ketones (Negative) Urine Blood (Negative) Urine Nitrite (Negative) Urine Bilirubin (Negative) Urine Urobilinogen (<2.0) mg/dL Ur Leukocyte Esterase (Negative) Urine RBC (0-5) /hpf Urine WBC (0-5) /hpf Urine WBC Clumps (None) /hpf Urine Bacteria (None) /hpf Disposition Time of Disposition: 11:50 <Nuno Jacob - Last Filed: 12/03/16 11:50> <Harish Forde - Last Filed: 12/03/16 11:56> Clinical Impression: Hematuria, UTI (urinary tract infection) Disposition: HOME SELF-CARE Condition: Good Instructions: Urinary Tract Infection in Men (ED) Additional Instructions: Please follow-up the urologist tomorrow. Please hold blood thinner as discussed until urine has cleared. Please use antibiotic as prescribed and return to emergency room if any symptoms increase or worsen. Prescriptions: Ciprofloxacin HCl [Cipro] 500 mg PO Q12HR #20 day Referrals: Nonstaff,Physician [Primary Care Provider] - 1-2 days Payam Lanza MD [STAFF PHYSICIAN] - 1-2 days
[2016-12-03 11:08] VITALS: BP 173/76; PULSE 63; RESP 17; TEMP 99
--- NOTE | 2016-12-03 11:15 | CT ---
EXAMINATION TYPE: CT abdomen pelvis wo con DATE OF EXAM: 12/03/2016 COMPARISON: NONE HISTORY: 86-year-old male with pain, Hematuria CT DLP: 960.00 mGycm. Automated exposure control for dose reduction was used. TECHNIQUE: Contiguous axial scanning of the abdomen and pelvis without IV contrast. Coronal and sagit russell reconstructions performed. FINDINGS: Heart is normal size without pericardial effusion. Pacer leads are present. Strandy atelectasis or sc arring at the lower lungs. 7 mm medial right basilar pulmonary nodule. Nonspecific 1.2 cm hypodense lesion segment 3 left liver lobe axial image 15, too small for accurate CT characterization, probable small cyst. 1.9 cm gallstone within a nondistended gallbladder. Adrenal glands, spleen, pancreas within normal limits. Bilateral perinephric stranding likely chronic , senescent change. A 1.4 cm hypodense lesion posterior upper to mid pole left renal cortex, axial im age 28 too small for accurate CT characterization, probable cyst. There may be an additional 1.3 cm h ypodense lesion lateral lower pole right kidney axial image 37. No hydronephrosis or nephrolithiasis. Moderate atherosclerotic calcifications within the abdominal aorta and iliac arteries. Normal appendix. Mild stool burden. No pericolonic inflammatory change. No mesenteric or retroperitoneal lymphadenopathy. Bladder is urine distended. Prostate gland is enlarged measuring 5.4 cm wide and 6.6 cm craniocaudal with prominence soft tissue extending into the posterior bladder base. There is additional 9 mm mural based nodule in the left paramedian posterior bladder wall, axial image 68, sagittal image 78, and c oronal image 61. Mild perivesicular fat stranding. No abnormal fluid collection in the pelvis or pelv ic lymphadenopathy seen. Bones: Degenerative changes of the hips and right SI joint. Multilevel degenerative changes throughou t the spine is well. No osseous destructive process. IMPRESSION: 1. A couple hypodense lesions within the kidneys measuring up to 1.4 cm, too small for accurate CT ch aracterization, suspected cysts. Recommend three-month follow-up renal ultrasound to exclude any enla rging lesions. 2. Prostatomegaly (6.6 cm) with prominent soft tissue impressing onto the posterior bladder base. Fin dings suspected to represent BPH. Correlate with PSA, patient's symptoms, and physical exam. 3. Mild perivesicular fat stranding may be reactive to bladder outlet obstruction or could represent cystitis. Clinically correlate. 4. A 9 mm mural based nodule left paramedian posterior bladder wall. A small urothelial lesion not ex cluded at this time. Correlate with urine cytology. Direct visualization as indicated. Bladder ultras ound could be attempted but may not be helpful. 5. 7 mm right basilar pulmonary nodule. Recommend nonemergent follow-up CT chest to survey the entire lungs. 6. Cholelithiasis.
== END 2016-12-03 12:00 | disposition home or self-care (01) ==
LOC: EC 09:19
DX: N39.0 Urinary tract infection, site not specified (principal); N40.0 Benign prostatic hyperplasia without lower urinary tract symptoms; N28.89 Other specified disorders of kidney and ureter; E11.9 Type 2 diabetes mellitus without complications; E78.5 Hyperlipidemia, unspecified; I10 Essential (primary) hypertension; Z79.899 Other long term (current) drug therapy; Z79.01 Long term (current) use of anticoagulants
CPT/HCPCS: 36415; 51798; 74176; 80053; 81001; 85025; 85610; 85730; 87086; 99284

== ENCOUNTER 2016-12-15 04:28 | Emergency (ER) | payer MEDICARE, BC ==
--- NOTE | 2016-12-15 04:45 | ED ---
General Adult HPI - General Chief complaint: Urogenital Stated complaint: unable to urinate Time Seen by Provider: 12/15/16 04:35 Source: patient, RN notes reviewed Mode of arrival: ambulatory Limitations: no limitations - History of Present Illness Initial comments: This is an 86-year-old male who presents to the emergency room because he has not been able to urinate since 11:00 tonight. Patient states she's been having prostate problems for a while. Patient states he has an appointment today with his urologist. Patient states she was recently diagnosed with urinary tract infection and just finished his antibiotics yesterday. Patient denies any fever chills per patient denies any flank pain or back pain. Patient states she has suprapubic fullness and pressure. - Related Data Home Medications Medication Instructions Recorded Confirmed Atorvastatin [Lipitor] 10 mg PO HS 11/12/16 12/15/16 Carvedilol [Coreg] 6.25 mg PO DAILY 11/12/16 12/15/16 Cholecalciferol [Vitamin D3] 1,000 unit PO DAILY 11/12/16 12/15/16 Finasteride [Proscar] 5 mg PO DAILY 11/12/16 12/15/16 Glimepiride [Amaryl] 2 mg PO BID 11/12/16 12/15/16 Linagliptin [Tradjenta] 5 mg PO DAILY 11/12/16 12/15/16 Losartan Potassium 50 mg PO BID 11/12/16 12/15/16 Propafenone HCl [Propafenone HCl 325 mg PO BID 11/12/16 12/15/16 ER] Tamsulosin HCl [Flomax] 0.4 mg PO BID 11/12/16 12/15/16 Triamterene/Hydrochlorothiazid 1 tab PO DAILY 11/12/16 12/15/16 [Triamterene-Hctz 37.5-25 mg Tb] Apixaban [Eliquis] 2.5 mg PO BID 12/03/16 12/15/16 Previous Rx's Medication Instructions Recorded Ciprofloxacin HCl [Cipro] 500 mg PO Q12HR #20 day 12/03/16 Allergies Allergy/AdvReac Type Severity Reaction Status Date / Time No Known Allergies Allergy Verified 12/15/16 04:34 Review of Systems ROS Statement: Those systems with pertinent positive or pertinent negative responses have been documented in the HPI. ROS Other: All systems not noted in ROS Statement are negative. Past Medical History Past Medical History: Diabetes Mellitus, Hyperlipidemia, Hypertension, Prostate Disorder History of Any Multi-Drug Resistant Organisms: None Reported Past Surgical History: Pacemaker Type of Cardiac Device: Permanent Pacemaker Device Placement Date:: unknown Past Psychological History: No Psychological Hx Reported Smoking Status: Never smoker Past Alcohol Use History: Occasional Past Drug Use History: None Reported - Past Family History Father History Unknown: Yes General Exam - General Exam Comments Initial Comments: GENERAL: Patient is well-developed and well-nourished. Patient is nontoxic and well- hydrated and is in mild distress. ENT: Neck is soft and supple. No significant lymphadenopathy is noted. Oropharynx is clear. Moist mucous membranes. Neck has full range of motion without eliciting any pain. EYES: The sclera were anicteric and conjunctiva were pink and moist. Extraocular movements were intact and pupils were equal round and reactive to light. Eyelids were unremarkable. PULMONARY: Unlabored respirations. Good breath sounds bilaterally. No audible rales rhonchi or wheezing was noted. CARDIOVASCULAR: There is a regular rate and rhythm without any murmurs gallops or rubs. ABDOMEN: Suprapubic area is distended and tender to palpation SKIN: Skin is clear with no lesions or rashes and otherwise unremarkable. NEUROLOGIC: Patient is alert and oriented x3. Cranial nerves II through XII are grossly intact. Motor and sensory are also intact. Normal speech, volume and content. MUSCULOSKELETAL: Normal extremities with adequate strength and full range of motion. LYMPHATICS: No significant lymphadenopathy is noted PSYCHIATRIC: Normal psychiatric evaluation. Limitations: no limitations Course Vital Signs 12/15/16 04:32 Temperature 97.5 F L Pulse Rate 108 H Respiratory 18 Rate Blood Pressure 213/98 O2 Sat by Pulse 98 Oximetry Medical Decision Making - Medical Decision Making a Ledbetter was placed. Patient got 800 mL of urine out. - Lab Data Lab Results 12/15/16 Range/Units 05:04 Urine Color Light Red Urine Appearance Cloudy (Clear) Urine pH 5.0 (5.0-8.0) Ur Specific [place] 1.008 (1.001-1.035) Urine Protein 1+ H (Negative) Urine Glucose (UA) Negative (Negative) Urine Ketones Negative (Negative) Urine Blood Large H (Negative) Urine Nitrite Negative (Negative) Urine Bilirubin Negative (Negative) Urine Urobilinogen <2.0 (<2.0) mg/dL Ur Leukocyte Esterase Trace H (Negative) Urine RBC >182 H (0-5) /hpf Urine WBC 10 H (0-5) /hpf Amorphous Sediment Rare H (None) /hpf Disposition Clinical Impression: Urinary retention Disposition: HOME SELF-CARE Condition: Good Instructions: Urinary Retention in Men (ED) Additional Instructions: Patient should follow-up with urology today as previously scheduled. Referrals: Nonstaff,Physician [Primary Care Provider] - 1-2 days
[2016-12-15 05:14] LABS: Amorphous Sediment,Urine Rare /hpf; Appearance,Urine Cloudy (Clear); Bilirubin,Urine Negative (Negative); Glucose,Urine (UA) Negative (Negative); Ketones,Urine Negative (Negative); Leukocyte Esterase,Urine Trace (Negative); Nitrite,Urine Negative (Negative); Particle Count 8479; Protein,Urine 1+ (Negative); RBC,Urine >182 /hpf (0-5); Specific Gravity,Urine 1.008 (1.001-1.035); UA Billing (MACRO vs. MICRO) MICRO; Urobilinogen,Urine <2.0 mg/dL (<2.0); WBC,Urine 10 /hpf (0-5)
[2016-12-15 05:44] VITALS: BP 171/80; PULSE 65; RESP 16; TEMP 98.3
== END 2016-12-15 05:44 | disposition home or self-care (01) ==
LOC: EC 04:28
DX: R33.9 Retention of urine, unspecified (principal); E78.5 Hyperlipidemia, unspecified; I10 Essential (primary) hypertension; E11.9 Type 2 diabetes mellitus without complications; N42.9 Disorder of prostate, unspecified; Z79.01 Long term (current) use of anticoagulants; Z79.84 Long term (current) use of oral hypoglycemic drugs; Z79.899 Other long term (current) drug therapy; Z95.0 Presence of cardiac pacemaker
CPT/HCPCS: 51702; 81001; 99283

== ENCOUNTER → 2016-12-26 | Outpatient (CLI) | payer MEDICARE, BC ==
[2016-12-26 09:51] LABS: EKG EKG PERFORMED
[2016-12-26 10:33] LABS: Basophils % (A) 1 %; CH 27.3; CHCM 33.3; Eosinophils # (A) 0.2 k/uL (0-0.7); Eosinophils % (A) 2 %; HCT 34.8 % (39.0-53.0); HDW 2.43; HGB 11.4 gm/dL (13.0-17.5); Luc # (Auto) 0.15; Luc % (Auto) 2; Lymphocytes # (A) 1.7 k/uL (1.0-4.8); Lymphocytes % (A) 23 %; MCHC 32.9 g/dL (31.0-37.0); MCV 82.1 fL (80.0-100.0); Monocytes # (A) 0.4 k/uL (0-1.0); Monocytes % (A) 5 %; Neutrophils # (A) 4.9 k/uL (1.3-7.7); Neutrophils % (A) 67 %; RBC 4.24 m/uL (4.30-5.90); WBC 7.4 k/uL (3.8-10.6); WBC (Perox) 6.74
[2016-12-26 10:52] LABS: Anion Gap 10 mmol/L; Blood Urea Nitrogen 31 mg/dL (9-20); Calcium 9.3 mg/dL (8.4-10.2); Carbon Dioxide 26 mmol/L (22-30); Chloride 104 mmol/L (98-107); Glucose 231 mg/dL (74-99); Non-African American GFR(MDRD) 52 (>60 ml/min/1.73 sqM); Potassium 4.1 mmol/L (3.5-5.1); Sodium 140 mmol/L (137-145)
[2016-12-26 11:14] LABS: Appearance,Urine Clear (Clear); Bacteria,Urine Rare /hpf; Bilirubin,Urine Negative (Negative); Glucose,Urine (UA) Trace (Negative); Ketones,Urine Negative (Negative); Leukocyte Esterase,Urine Large (Negative); Nitrite,Urine Positive (Negative); Particle Count 3332; Protein,Urine Trace (Negative); RBC,Urine 125 /hpf (0-5); Specific Gravity,Urine 1.009 (1.001-1.035); UA Billing (MACRO vs. MICRO) MICRO; Urobilinogen,Urine <2.0 mg/dL (<2.0); WBC,Urine 39 /hpf (0-5)
== END | disposition home or self-care (01) ==
LOC: LABPAT 09:28
PROVIDERS: ATTEND Urology
DX: Z01.810 Encounter for preprocedural cardiovascular examination (principal); I10 Essential (primary) hypertension; I48.91 Unspecified atrial fibrillation; N47.1 Phimosis; R33.9 Retention of urine, unspecified; R35.0 Frequency of micturition; E78.5 Hyperlipidemia, unspecified; Z01.812 Encounter for preprocedural laboratory examination
CPT/HCPCS: 80048; 81001; 85025; 87086; 93005

== ENCOUNTER 2017-01-02 12:21 | Day surgery (SDC) | payer MEDICARE, BC ==
[~2017-01-02 12:21] MED LIST: AMPICILLIN 1,000 MG in SODIUM CHLORIDE 0.9% 50 ML IVPB ONE; DEXAMETHASONE SOD PHOSPHATE 10 MG/ML 1 ML VIAL IV ONE; GENTAMICIN 160 MG in SODIUM CHLORIDE 0.9% 100 ML IVPB ONE; HYDROmorphone 1 MG/ML 1 ML SYRINGE IVP PRN; ONDANSETRON 4 MG/2 ML VIAL IVP ONE
[2017-01-02 12:51] LABS: Glucose,Whole Blood 181 mg/dL (75-99)
[2017-01-02] MEDS ORDERED: LIDOCAINE 1% 20 ML VIAL (10MG/ML) FOR IV START INTRADERMA ONE (12:53)
[2017-01-02] MEDS: LACTATED RINGERS 1,000 ML IV SCH (12:53)
[2017-01-02] MEDS ORDERED: PROPOFOL 10 MG/ML 20 ML VIAL IV ONE (13:50)
[2017-01-02] MEDS ORDERED: MIDAZOLAM 2 MG/2 ML VIAL ONE (13:50)
[2017-01-02] MEDS ORDERED: fentaNYL (PF) 50 MCG/ML 2 ML AMP ONE (13:50)
[2017-01-02] MEDS ORDERED: MAG HYDROX/AL HYDROX/SIMETH 30 ML CUP PO PRN (16:07)
[2017-01-02] MEDS ORDERED: ACETAMINOPHEN TAB 325 MG TAB PO PRN (16:07)
[2017-01-02] MEDS ORDERED: BELLADONNA-OPIUM 16.2-60 MG 1 EACH SUPP RECTAL PRN (16:07)
--- NOTE | 2017-01-02 16:15 | P.OP ---
Date of Procedure: 01/02/17 Preoperative Diagnosis: Urine retention, phimosis Postoperative Diagnosis: Same Procedure(s) Performed: Circumcision, transurethral resection of prostate, bipolar Implants: Anesthesia: spinal Surgeon: Payam Lanza Estimated Blood Loss (ml): 100 Pathology: other (Prostate, foreskin) Condition: stable Disposition: PACU Indications for Procedure: The patient is an 86-year-old gentleman with a very large prostate, urine retention and severe phimosis he comes for circumcision and bipolar TURP Operative Findings: Description of Procedure: The patient is brought to the operating suite and given a successful spinal anesthesia on the operating table. He's placed lithotomy position with sterile prep and drape. First circumcision was performed by excising the redundant foreskin. Bleeding was controlled electrocautery. The subcoronal skin is reapproximated with again with 2 running 4-0 Monocryl's. I then introduced under direct vision the 25-Palauan resectoscope sheath with direct vision obturator and Foroblique lens. The prostates long large trilobar the prominent intravesical middle lobe. The bladder was severely trabeculated. With the Pinedo resectoscope and bipolar loop I first resect the large intravesical middle lobe. It does look malignant. I then moved to the 12 o'clock position and resect the left lateral lobe from 12:00 to 6:00 both proximally and then distally. I do the same on the right side. I then resect the redundant floor tissue. I evacuate the bladder prostatic chips with the UpDown evacuator. Bleeding is controlled electrocautery. Then of the procedure and introduce a 20 -Palauan coud-tip catheter in the bladder but it is too pink to go without irrigation. This is probably due to the lack of contraction from prostate cancer. I then introduced an over a mandrin guide a 22-Palauan 3-way catheter in the bladder with clear to light pink urine return with irrigation. The patient returned recovery room good condition. He tolerated the procedure well. He'll be placed in the hospital postoperatively with irrigation. Blood loss is approximately 100 mL.
[2017-01-02 16:34] LABS: Glucose,Whole Blood 183 mg/dL (75-99)
[2017-01-02 16:54] VITALS: RESP 16
[2017-01-02] MEDS ORDERED: HYDROmorphone 1 MG/ML 1 ML SYRINGE IVP ONE ×3 (16:57→17:09)
[2017-01-02] MEDS: GLIMEPIRIDE 2 MG TAB PO SCH (17:00)
[2017-01-02] MEDS: SODIUM CHLORIDE 0.45% 1,000 ML IV SCH (18:28)
[2017-01-02] MEDS: SODIUM CHLORIDE 0.9% IRRIG 3,000 ML BAG IRRIGATION SCH ×2 (18:41→19:49)
[2017-01-02 20:14] VITALS: BMI 33.4
[2017-01-02 21:09] LABS: Glucose,Whole Blood 363 mg/dL (75-99)
[2017-01-02] MEDS: ATORVASTATIN 10 MG TAB PO SCH (22:35)
[2017-01-02] MEDS: DOCUSATE 100 MG CAP PO SCH (22:36)
[2017-01-02] MEDS: LOSARTAN 50 MG TAB PO SCH (22:36)
[2017-01-02] MEDS: FINASTERIDE 5 MG TAB PO SCH (22:36)
[2017-01-02] MEDS: PROPAFENONE 225 MG TAB PO SCH (22:37)
[2017-01-02] MEDS: INSULIN LISPRO (humaLOG) 300 UNIT/3 ML VIAL SQ SCH (22:41)
[2017-01-03] MEDS: HYDROcodone/APAP 5-325MG 1 EACH TAB PO PRN ×2 (00:31→06:31)
[2017-01-03] MEDS: SODIUM CHLORIDE 0.9% IRRIG 3,000 ML BAG IRRIGATION SCH (02:15)
[2017-01-03] MEDS: SODIUM CHLORIDE 0.45% 1,000 ML IV SCH ×2 (04:11→21:30)
[2017-01-03] MEDS: LACTATED RINGERS 1,000 ML IV SCH (06:14)
[2017-01-03 06:55] LABS: Glucose,Whole Blood 211 mg/dL (75-99)
[2017-01-03] MEDS: INSULIN LISPRO (humaLOG) 300 UNIT/3 ML VIAL SQ SCH ×4 (08:03→21:35)
[2017-01-03] MEDS: GLIMEPIRIDE 2 MG TAB PO SCH ×2 (08:06→17:29)
[2017-01-03] MEDS: LINAGLIPTIN 5 MG TABLET PO SCH (08:06)
[2017-01-03] MEDS: CARVEDILOL 6.25 MG TAB PO SCH (08:06)
[2017-01-03] MEDS: PROPAFENONE 225 MG TAB PO SCH ×3 (08:06→21:31)
[2017-01-03] MEDS: TRIAMTERENE-HCTZ 37.5-25MG 1 EACH TAB PO SCH (08:06)
[2017-01-03] MEDS: LOSARTAN 50 MG TAB PO SCH ×2 (08:06→21:31)
[2017-01-03] MEDS: DOCUSATE 100 MG CAP PO SCH ×2 (08:06→21:31)
--- NOTE | 2017-01-03 08:17 | P.PN ---
Subjective The patient is status post TURP and circumcision. The urine is clear and his vital signs are stable. I will discontinue the irrigation and IV fluids. We' ll observe him today and remove his catheter in the morning. If he voids well he'll be discharged home tomorrow. Objective - Vital Signs Vital signs: Vital Signs Temp 97.4 F L 01/03/17 07:00 Pulse 71 01/03/17 07:00 Resp 16 01/03/17 07:00 BP 158/74 01/03/17 07:00 Pulse Ox 96 01/03/17 07:00 Intake & Output 01/02/17 01/03/17 01/03/17 18:59 06:59 18:59 Intake Total 904 Output Total 8100 7800 1500 Balance -7196 -7800 -1500 Weight 99.79 kg Intake: IV 904 Output: Urine 8000 7800 1500 2-way Urethral 3300 7800 1500 Estimated Blood Loss 100 Other: Voiding Method Indwelling Catheter - Labs Labs: Abnormal Lab Results - Last 24 Hours (Table) 01/02/17 01/02/17 01/02/17 Range/Units 12:47 16:27 21:01 POC Glucose (mg/dL) 181 H 183 H 363 H (75-99) mg/dL 01/03/17 Range/Units 06:53 POC Glucose (mg/dL) 211 H (75-99) mg/dL
[2017-01-03 11:04] LABS: Hemoglobin A1C 8.1 % (4.2-6.1)
[2017-01-03 11:48] LABS: Glucose,Whole Blood 215 mg/dL (75-99)
[2017-01-03 17:16] LABS: Glucose,Whole Blood 161 mg/dL (75-99)
[2017-01-03] MEDS: FINASTERIDE 5 MG TAB PO SCH (21:31)
[2017-01-03] MEDS: ATORVASTATIN 10 MG TAB PO SCH (21:31)
[2017-01-03 21:34] LABS: Glucose,Whole Blood 155 mg/dL (75-99)
[2017-01-04] MEDS: HYDROcodone/APAP 5-325MG 1 EACH TAB PO PRN (01:10)
[2017-01-04] MEDS: LACTATED RINGERS 1,000 ML IV SCH (06:01)
--- NOTE | 2017-01-04 06:36 | P.DS ---
Providers Attending physician: Payam Lanza Primary care physician: Stated None Hospital Course: The patient was brought to the hospital for a circumcision and a TURP. He underwent this on 01/02/2017 without difficulty. He did require bladder irrigation overnight. Because of this I kept him in the hospital yesterday to make sure he didn't bleed and he did not. The catheter will be removed this morning if he voids okay she'll be discharged home. He'll follow-up in the office in one week. Pathology report is pending. Activity as been discussed. Medications be resumed other than blood thinners and tamsulosin. Condition is good activities Limited. Patient Condition at Discharge: Good Plan - Discharge Summary New Discharge Prescriptions: No Action Losartan Potassium 100 mg PO BID Glimepiride [Amaryl] 2 mg PO BID Finasteride [Proscar] 5 mg PO HS Cholecalciferol [Vitamin D3] 1,000 unit PO DAILY Linagliptin [Tradjenta] 5 mg PO QAM Carvedilol [Coreg] 6.25 mg PO QAM Atorvastatin [Lipitor] 10 mg PO HS Triamterene/Hydrochlorothiazid [Triamterene-Hctz 37.5-25 mg Tb] 1 tab PO QAM Tamsulosin HCl [Flomax] 0.4 mg PO BID Propafenone HCl [Propafenone HCl ER] 325 mg PO BID Apixaban [Eliquis] 2.5 mg PO BID Discharge Medication List Atorvastatin [Lipitor] 10 mg PO HS 11/12/16 [History] Carvedilol [Coreg] 6.25 mg PO QAM 11/12/16 [History] Cholecalciferol [Vitamin D3] 1,000 unit PO DAILY 11/12/16 [History] Finasteride [Proscar] 5 mg PO HS 11/12/16 [History] Glimepiride [Amaryl] 2 mg PO BID 11/12/16 [History] Linagliptin [Tradjenta] 5 mg PO QAM 11/12/16 [History] Losartan Potassium 100 mg PO BID 11/12/16 [History] Propafenone HCl [Propafenone HCl ER] 325 mg PO BID 11/12/16 [History] Tamsulosin HCl [Flomax] 0.4 mg PO BID 11/12/16 [History] Triamterene/Hydrochlorothiazid [Triamterene-Hctz 37.5-25 mg Tb] 1 tab PO QAM [History] Apixaban [Eliquis] 2.5 mg PO BID 12/03/16 [History] Follow up Appointment(s)/Referral(s): Payam Lanza MD [STAFF PHYSICIAN] - 1 Week Activity/Diet/Wound Care/Special Instructions: Patient may shower. Resume medications other than blood thinners and tamsulosin. Office to see me in one week. Discharge Disposition: HOME SELF-CARE
[2017-01-04 07:41] VITALS: BP 173/74; PULSE 71; TEMP 97.7
[2017-01-04 07:56] LABS: Glucose,Whole Blood 127 mg/dL (75-99)
[2017-01-04] MEDS: INSULIN LISPRO (humaLOG) 300 UNIT/3 ML VIAL SQ SCH ×2 (08:00→12:35)
[2017-01-04] MEDS: SODIUM CHLORIDE 0.45% 1,000 ML IV SCH (08:02)
[2017-01-04] MEDS: GLIMEPIRIDE 2 MG TAB PO SCH (08:03)
[2017-01-04] MEDS: LOSARTAN 50 MG TAB PO SCH (08:04)
[2017-01-04] MEDS: LINAGLIPTIN 5 MG TABLET PO SCH (08:04)
[2017-01-04] MEDS: TRIAMTERENE-HCTZ 37.5-25MG 1 EACH TAB PO SCH (08:04)
[2017-01-04] MEDS: DOCUSATE 100 MG CAP PO SCH (08:04)
[2017-01-04] MEDS: PROPAFENONE 225 MG TAB PO SCH (08:04)
[2017-01-04] MEDS: CARVEDILOL 6.25 MG TAB PO SCH (08:04)
[2017-01-04 12:07] LABS: Glucose,Whole Blood 148 mg/dL (75-99)
== END 2017-01-04 15:32 | disposition home or self-care (01) ==
LOC: OR 12:21 → 3SUR 16:12 → OR 01-04 15:32
PROVIDERS: ATTEND Urology
DX: C7A.8 Other malignant neuroendocrine tumors (principal); N40.1 Benign prostatic hyperplasia with lower urinary tract symptoms; R33.8 Other retention of urine; N47.1 Phimosis; I10 Essential (primary) hypertension; I48.91 Unspecified atrial fibrillation; E11.9 Type 2 diabetes mellitus without complications; Z95.0 Presence of cardiac pacemaker; Z79.01 Long term (current) use of anticoagulants; Z79.899 Other long term (current) drug therapy
CPT/HCPCS: 88304; 88305; 83036; 88342; 88341; 54161; 52601; S0138 ×2; J2250; J1100; J2405; J3010; J1580; J1170; J2704

== ENCOUNTER 2017-01-04 19:47 | Emergency (ER) | payer MEDICARE, BC ==
[2017-01-04] MEDS ORDERED: LIDOCAINE URO-JET JELLY 2% 5 ML KIT URETHRAL ONE (21:12)
--- NOTE | 2017-01-04 21:16 | ED ---
Male Urogenital HPI - General Chief complaint: Urogenital Stated complaint: cannot urinate Time Seen by Provider: 01/04/17 20:35 Source: patient Mode of arrival: ambulatory Limitations: no limitations - History of Present Illness Initial comments: Patient is an 86-year-old male who presents with the chief complaint of anuria. Patient states that he had prostate surgery 3 days ago, was released from the hospital today. He had his Ledbetter catheter removed today, and urinated at 3 PM. At that time he states that it was a small amount of urine, and that it was hesitant to pass. Patient states that he has not been able to urinate since. Since his discharge, he has been having increased discomfort and states that he feels that he has to P but he cannot. Patient denies any aggravating or alleviating factors. Timing is constant. He has a follow-up appointment with Dr. Rivas tomorrow - Related Data Home Medications Medication Instructions Recorded Confirmed Atorvastatin [Lipitor] 10 mg PO HS 11/12/16 01/04/17 Carvedilol [Coreg] 6.25 mg PO DAILY 11/12/16 01/04/17 Cholecalciferol [Vitamin D3] 1,000 unit PO DAILY 11/12/16 01/04/17 Finasteride [Proscar] 5 mg PO HS 11/12/16 01/04/17 Glimepiride [Amaryl] 2 mg PO BID 11/12/16 01/04/17 Linagliptin [Tradjenta] 5 mg PO DAILY 11/12/16 01/04/17 Losartan Potassium 100 mg PO BID 11/12/16 01/04/17 Propafenone HCl [Propafenone HCl 325 mg PO BID 11/12/16 01/04/17 ER] Tamsulosin HCl [Flomax] 0.4 mg PO BID 11/12/16 01/04/17 Triamterene/Hydrochlorothiazid 1 tab PO DAILY 11/12/16 01/04/17 [Triamterene-Hctz 37.5-25 mg Tb] Apixaban [Eliquis] 2.5 mg PO DIRECTED 12/03/16 01/04/17 Allergies Allergy/AdvReac Type Severity Reaction Status Date / Time No Known Allergies Allergy Verified 01/04/17 21:04 Review of Systems ROS Statement: Those systems with pertinent positive or pertinent negative responses have been documented in the HPI. ROS Other: All systems not noted in ROS Statement are negative. Constitutional: Denies: fever, chills Eyes: Denies: vision change ENT: Denies: ear pain, throat pain Respiratory: Denies: cough, dyspnea Cardiovascular: Denies: chest pain, palpitations Endocrine: Denies: fatigue Gastrointestinal: Denies: abdominal pain, nausea, vomiting Genitourinary: Reports: urgency, dysuria, other (Anuria) Musculoskeletal: Denies: back pain Skin: Denies: rash Neurological: Denies: headache, weakness Past Medical History Past Medical History: Diabetes Mellitus, Hyperlipidemia, Hypertension, Prostate Disorder History of Any Multi-Drug Resistant Organisms: None Reported Past Surgical History: Pacemaker Type of Cardiac Device: Permanent Pacemaker Device Placement Date:: unknown Past Psychological History: No Psychological Hx Reported Smoking Status: Never smoker Past Alcohol Use History: Occasional Past Drug Use History: None Reported - Past Family History Father History Unknown: Yes Additional Family Medical History / Comment(s): stepfather. patient was adopted and does not know history of biological parents General Exam Limitations: no limitations General appearance: alert, in no apparent distress Head exam: Present: atraumatic, normocephalic Eye exam: Present: normal appearance, PERRL, EOMI ENT exam: Present: normal exam, normal oropharynx. Absent: mucous membranes dry Neck exam: Present: normal inspection Respiratory exam: Present: normal lung sounds bilaterally, respiratory distress , wheezes Cardiovascular Exam: Present: regular rate, normal rhythm, normal heart sounds GI/Abdominal exam: Present: soft. Absent: distended, tenderness Rectal exam: Present: deferred exam: Present: circumcision, other (Recent circumcision appears to be healing well) External exam: Present: normal external exam Extremities exam: Present: normal inspection Course Vital Signs 01/04/17 20:22 Temperature 99.3 F Pulse Rate 99 Respiratory 18 Rate Blood Pressure 133/89 O2 Sat by Pulse 98 Oximetry Medical Decision Making - Medical Decision Making Patient presents with a chief complaint of bladder discomfort, and anuria since his discharge from the hospital status post prostate surgery and circumcision. Patient states that he has not been able to urinate since he left the hospital at 3:00. He did gradually more uncomfortable. I spoke with Dr. Rivas, his urologist who states that it is okay to replace a Ledbetter. Bladder scan only reveals 200 mL of urine however my exam is consistent with a full bladder. We' ll premedicate the patient with Urojet, and placed Ledbetter. Patient will be able to go home with a leg bag. He is instructed to follow-up with Dr. Rivas within the week. Patient has no other complaints at this time. Patient's vital signs remained stable, he is in no acute distress. 10:28 PM Initial bladder scan shows that the patient has 200 mL of urine, I spoke with Dr. Rivas who agrees that the patient should have a Ledbetter placed even given the low volume in the bladder. Upon placement of Ledbetter, patient immediately had 900 mL of urine returned, he was observed for an hour and had about 150 mL after. At this point, patient states she is feeling much better, he is eating and tolerating by mouth intake. When he is stable for discharge and follow-up with urology. He was given explicit instructions on signs and symptoms that should prompt return visit to the emergency department. Disposition Clinical Impression: Urinary retention Disposition: HOME SELF-CARE Condition: Good Instructions: Urinary Retention in Men (ED), Ledbetter Catheter Placement and Care (ED) Referrals: Nonstaff,Physician [Primary Care Provider] - 1-2 days
[2017-01-04 23:33] VITALS: BP 140/65; PULSE 79; RESP 20; TEMP 97.9
== END 2017-01-04 23:32 | disposition home or self-care (01) ==
LOC: EC 19:47
DX: R33.9 Retention of urine, unspecified (principal); R34 Anuria and oliguria; E11.9 Type 2 diabetes mellitus without complications; E78.5 Hyperlipidemia, unspecified; I10 Essential (primary) hypertension; Z79.84 Long term (current) use of oral hypoglycemic drugs; Z79.899 Other long term (current) drug therapy
CPT/HCPCS: 51702; 51798; 99283

== ENCOUNTER → 2017-01-20 | Outpatient (CLI) | payer MEDICARE, BC ==
--- NOTE | 2017-01-21 12:10 | PE ---
EXAMINATION TYPE: PET CT fusion skull to thigh DATE OF EXAM: 01/20/2017 COMPARISON: CT abdomen pelvis 12/03/2016 Prior PET/CT: None HISTORY: Liver cancer TECHNIQUE: Following the intravenous administration of 14.9 mCi of F-18 FDG, whole body images are p erformed from the skull base to the midthigh. Images are reviewed on the computer in the coronal, ax ial, and sagittal planes. Reconstructed rotating images are created on independent workstation and r eviewed on the computer. A localization and attenuation correction CT is performed in conjunction w ith the PET scan. DLP: 415.73 mGycm SCAN: Initial Blood glucose: 81 mg/dL Average Mediastinum SUV: 1.1 Average Liver SUV: 1.5 FINDINGS: NECK: No abnormal uptake THORAX: Small focal area of uptake is present posterior to the left lower lobe pulmonary artery. This has an SUV value of 3.8. A metastatic lesion is not excluded at this level. PET image 90. Small foca l area of uptake is adjacent to the descending thoracic aorta in the retrocardiac region. PET image 107. This has an SUV value of 4. Small focus of increased radiotracer accumulation along the as ago e sophageal recess adjacent to some spondylosis may be inflammatory in nature. PET Image 121. Pleural-b ased lesion however is not excluded with an SUV value of 3. The posterior medial right lung base nodule identified on the 12/03/2016 CT examination is again presen t on the current study with an SUV value of 0.8. This is more likely benign such as a granuloma. Earlene toring for stability can be performed with sequential CT examinations. ABDOMEN: No abnormal uptake PELVIS: No abnormal uptake. Intensity within the urethra region suggests a small cystocele is likely present. OSSEOUS STRUCTURES: There is uptake within the left sixth rib with an SUV value of 4.1. Image 86. Met astatic lesion should be considered. LOCALIZATION CT: The ascending thoracic aorta at the level of main pulmonary artery is 3.7 cm. The ma in pulmonary artery the bifurcation is 2.7 cm. Pleural-based calcifications identified bilaterally gr eater on the posterior left. There is thickening of the urinary bladder wall which is incompletely di stended. Prostate is prominent. Degenerative disc changes and facet changes are within the lumbar spi ne. COMPARISON: Localization CT correlates with the prior CT abdomen pelvis. IMPRESSION: 1. There are a few punctate areas of increased signal which are elevated suggesting the possibility o f malignancy. Metastatic lesions within the lung are considered more likely. A primary lesion however is not identified. Recommend correlation with a contrast CT chest. 2. The nodule within the posterior medial right lung base has intermediate signal suggesting a benign nodule such as granuloma. This can be monitored with sequential CT chest studies. 3. Focal area of increased radiotracer within the posterior left sixth rib appears somewhat sclerotic suggesting the possibility of a metastatic bone lesion. 4. Cystocele. There is thickening of the urinary bladder which is incompletely distended. Consider ad ditional workup of the urinary bladder.
== END | disposition home or self-care (01) ==
LOC: RADPETMAIN 14:34
PROVIDERS: ATTEND Internal Medicine Hematology & Oncology
DX: R91.1 Solitary pulmonary nodule (principal); R94.2 Abnormal results of pulmonary function studies; N32.89 Other specified disorders of bladder
CPT/HCPCS: 78815; A9552